=== PATIENT | female | born 1945 | race Caucasian/White ===

== ENCOUNTER 2019-09-13 19:37 | Emergency (ER) | payer MEDICARE, OTHER, SELFPAY ==
[2019-09-13 19:57] VITALS: BP 204/89; PULSE 67; RESP 18; TEMP 36.4; O2SAT 96; BMI 25.2
--- NOTE | 2019-09-13 21:55 | ED_ITS ---
Entered by Yasmeen Tejada, acting as scribe for Shirley Leija Sep 13, 2019 19:37 HPI - Weakness General: Chief complaint: Weakness Stated complaint: headache/numbness Time Seen by Provider: 09/13/19 21:54 Source: patient and family Mode of arrival: ambulatory History of Present Illness: HPI Narrative: 74 y/o female presents to the ED with sensation changes in her face and fingers. Pt states she had some tingling around the left side of her mouth and some tingling in a couple fingers. Pt has hx of high BP/migraines and states she has had several episodes this evening. These symptoms resolved on their own within about 10 minutes. MD Complaint: numbness and tingling Onset (ago): hour(s) (3) Duration: now resolved Location: other (left corner of mouth) Severity: mild Quality: tingling and numbness Associated symptoms: Denies chest pain, chills, dark stools, diaphoresis, dysuria, easy bruising, fever(s), nausea, syncope or vomiting Review of Systems General: Reports: other (negative unless marked) Const: Denies: fever, chills, body aches, fatigue, malaise or diaphoresis Eyes: Denies: change in vision or blurry vision ENMT: Denies: throat pain, painful swallowing, hoarseness, ear pain, ear discharge, Change in hearing or nasal discharge Card: Denies: chest pain, palpitations, irregular heart rhythm, syncope, pre- syncope, shortness of breath on exertion or shortness of breath when lying down Resp: Denies: shortness of breath, productive cough, non-productive cough, wheezing, coughing up blood or chest congestion GI: Denies: abdominal pain, nausea, vomiting, vomiting blood, coffee grounds in vomit, diarrhea, constipation, cramping, blood in stool or black tarry stool : Denies: flank pain, painful urination, urinary frequency, urinary urgency, decreased urine ouput, urinary incontinence or blood in urine Musc: Denies: neck pain, back pain, extremity pain, extremity swelling, joint pain, joint swelling, joint warmth or joint stiffness Skin/Breast: Denies: rash, skin tenderness or yellow skin Neuro: Reports: other (See HPI) Endo: Denies: excessive thirst, tired all the time, cold intolerance, excessive sweating, flushing or hot flashes Maciej/Lymph: Denies: easy bruising, easy bleeding, petechiae or enlarged lymph nodes All/Imm: Denies: hives, throat swelling, tongue swelling, facial swelling or acute wheezing PFSH ED PFSH: Social History Smoking and tobacco status: never smoked Physical Exam Const: COMMON NORMALS: no apparent distress, oriented x3, no limitations, healthy appearing and well nourished EXAM LIMITATIONS: no altered mental status GENERAL APPEARANCE: cooperative, well kempt and well developed ORIENTATION/CONSCIOUSNESS: Yes awake HENMT: COMMON NORMALS: normocephalic, head/scalp atraumatic, hearing grossly normal bilaterally, external ears normal, EAC's normal, external nose normal and moist oral mucous membranes HEAD & SCALP: normal to inspection, normocephalic and atraumatic FACE & SINUS: normal facial exam and face symmetric NOSE: external nose normal and nares normal EXTERNAL EAR: Yes external ears normal EXTERNAL AUDITORY CANAL: EAC's normal MOUTH: oral and palatal mucosa normal and tongue normal Eye: COMMON NORMALS: PERRL, EOMs intact bilaterally, conjunctivae normal and no scleral icterus GENERAL EYE: normal appearance of both eyes and normal light reflex CONJUNCTIVA: Yes conjunctivae normal SCLERA: sclerae normal CORNEA: Yes corneas normal PUPIL: Yes PERRL DIRECT OPHTHALMOSCOPY: Yes normal light reflex Neck/C-Spine: COMMON NORMALS: full ROM, no lymphadenopathy, supple, no meningeal signs and no JVD GENERAL: Yes normal visual inspection and Yes trachea midline CERVICAL SPINE: Yes cervical ROM normal Chest: COMMONS NORMALS: inspection of chest normal and palpation of chest normal Resp: COMMON NORMALS: normal respiratory effort, no retractions, no use of accessory muscles and clear to auscultation bilaterally EFFORT & INSPECTION: Yes able to speak in complete sentences AUSCULTATION: clear to auscultation bilaterally Cardio: COMMON NORMALS: no JVD, regular rate, regular rhythm, S1 normal heart sound, S2 normal heart sound, no gallops, no clicks, no murmurs and no rub JUGULAR VENOUS DISTENTION: no JVD RATE: regular rate RHYTHM: regular rhythm HEART SOUNDS: S1 normal and S2 normal GI: COMMON NORMALS: soft to palpation, non-tender, no hepatosplenomegaly and no masses INSPECTION: Yes normal to inspection PALPATION: Yes soft and Yes no hepatosplenomegaly : COMMON NORMALS: Yes no CVA tenderness BLADDER/KIDNEY EXAM: Yes no CVA tenderness Back/Pelvis: COMMON NORMALS: no CVA tenderness, thoracic and lumbar spine normal to inspection, no thoracic nor lumbar tenderness and thoraco-lumbar ROM normal Extremity: COMMON NORMALS: normal to inspection, full ROM, normal capillary refill, no joint enlargement, no clubbing, cyanosis or edema and no calf tenderness Neuro: COMMON NORMALS: oriented x3, CN's II-XII intact bilaterally, moves all extremities, no focal motor deficits and no sensory deficits noted MENINGEAL SIGNS: Yes no meningeal signs Psych: COMMON NORMALS: mental status grossly normal, thought process normal, cooperative, affect normal, speech normal and activity/motor behavior normal APPEARANCE: Yes well kempt SPEECH: Yes normal speech THOUGHT PROCESS: normal thought process Skin: COMMON NORMALS: no rashes or lesions noted, skin turgor normal, no jaundice, no petechiae and no mottling GENERAL SKIN EXAM: no rashes or lesions noted and turgor normal Course ED course: Pts Stroke Score - 0 Vital Signs: Vital signs: Vital Signs Temperature 97.5 F L 09/13/19 19:57 Pulse Rate 86 09/14/19 00:28 Respiratory Rate 16 09/14/19 00:28 Blood Pressure 187/68 09/14/19 00:28 Pulse Oximetry 96 09/14/19 00:28 MDM - Weakness MDM Narrative: Medical decision making narrative: Lisa is a very nice 74-year-old female who comes in complaining of headache along with tingling and numbness of the left side of her face and her left index finger and thumb. Her symptoms lasted a short time and resolved completely. Her differential was extensive including CVA, complicated migraine, paresthesias, radiculopathy among many others. Ultimately her symptoms had resolved and her headache resolved with treatment here. I informed her that this could be a complicated migraine but also could be a TIA and recommended further work-up including admission to the hospital for this. The patient declined to stay and wanted to go home. She understood that by going home this put her at risk of or severe permanent disability but despite this she wanted to be discharged. Her family was with her and seemed frustrated that she made this decision but ultimately did support her. They did agree to return with her immediately said her symptoms change or worsen. The patient was warned but she was also welcome to return. Lab Data: Attestation: I reviewed the patient's lab results. Labs: Lab Results 09/13/19 09/13/19 09/13/19 Range/Units 22:12 22:12 22:12 WBC 6.8 (4.0-10.0) 10^3/ uL RBC 4.26 (4.1-5.3) 10^6/u L Hgb 13.0 (11.5-15.3) g/dL Hct 39.1 (37.0-47.0) % MCV 91.8 (81-99) fL MCH 30.5 (28.0-34.0) pg MCHC 33.2 (30.0-36.0) g/dL RDW 11.3 L (12.1-15.1) % Plt Count 202 (130-400) 10^3/c mm MPV 10.4 (7.4-10.4) fL Neut % (Auto) 65.4 % Lymph % (Auto) 24.1 % Bracken % (Auto) 8.7 % Eos % (Auto) 0.9 % Baso % (Auto) 0.6 % Neut # (Auto) 4.5 (1.8-7.7) 10^3/u L Lymph # (Auto) 1.6 (0.8-4.8) 10^3/u L Bracken # (Auto) 0.6 (0.2-0.9) 10^3/u L Eos # (Auto) 0.1 (0.0-0.8) 10^3/u L Baso # (Auto) 0.0 (0.0-0.1) 10^3/u L Nucleated RBC % (a uto) 0 % Nucleated RBCs # 0.0 /100WBC PT 13.60 H (10.5-13.3) SECO NDS INR 1.01 (0.8-1.2) Sodium 140 (136-145) mmol/L Potassium 4.6 (3.5-5.1) mmol/L Chloride 101 (98-107) mmol/L Carbon Dioxide 27 (22-29) mmol/L Anion Gap 16.6 (5-19) BUN 16 (8-23) mg/dL Creatinine 0.9 (0.5-0.9) mg/dL Glucose 123 H (65-115) mg/dL Calcium 10.4 (8.5-10.5) mg/dL Magnesium 2.3 (1.7-2.3) mg/dL Total Bilirubin 0.2 (0.15-1.2) mg/dL AST 19 (0-32) U/L ALT 15 (0-33) U/L Alkaline Phosphata se 90 (35-105) IU/L Total Protein 7.9 (6.6-8.7) g/dL Albumin 4.4 (3.5-5.2) g/dL Globulin 3.5 (1.3-4.6) g/dL Imaging Data^: CT Head: Radiologist's impression: [address] [address] [address] Scan Report Signed Patient: Lisa Gillette #: [id number] : 6Acct#:[id number] Age/Sex: 74 / FADM Date: 09/13/19 Loc: ERRoom/Bed: Attending Dr: Ordering Provider/Ordering MD: Shirley Leija DO Date of Service: 09/13/19 Procedure(s): CT head wo con* [id number] Accession Number(s): [id number] Report Number: [id number] PROCEDURE INFORMATION: Exam: CT Head Without Contrast Exam date and time: 09/13/2019 10:33 PM Age: 74 years old Clinical indication: Pain; Headache not specified; Additional info: Sanchez/ams TECHNIQUE: Imaging protocol: Computed tomography of the head without contrast. Total DLP: 733.46 mGy-cm Radiation optimization: All CT scans at this facility use at least one of these dose optimization techniques: automated exposure control; mA and/or kV adjustment per patient size (includes targeted exams where dose is matched to clinical indication); or iterative reconstruction. COMPARISON: No relevant prior studies available. FINDINGS: Brain: No acute intracranial hemorrhage or mass effect. There is decreased attenuation in the periventricular white matter, likely from microvascular disease. No definite acute infarct by CT. MRI could be more sensitive/specific for detection, as clinically directed. Ventricles: Ventricle size is normal for age. Bones/joints: No definite acute skull fracture. Sinuses: Included paranasal sinuses are essentially clear. Mastoid air cells: No significant acute finding. Vasculature: Vascular calcifications in the internal carotid and vertebral basilar systems. CT/CT head wo con* [id number] IMPRESSION: 1. No acute intracranial hemorrhage or mass effect. 2. Changes of microvascular disease. 3. No definite acute infarct by CT, see above. 4. Other findings discussed above. Radiation Dose CTDIVOL = (mGy): DLP = 733.46 (mGy-cm) Dictated By:Daniel El MD Signed By:Daniel El MDSigned Date/Time:09/13/19 2306 EKG Data^: EKG 1: Attestation: I personally reviewed and interpreted this EKG as follows: EKG interpretation date: 09/13/19 EKG interpretation time: 22:17 Interpretation: Sinus bradycardia 59 beats a minute, LVH, no acute ST or T wave changes. 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 You are more than welcome to return at any time for recheck and for further evaluation and care suture change you change your mind. I have recommended and offered to admit you to the hospital for further testing to the rule out TIA but you have declined. Please be certain to follow-up with Dr. Oliva as soon as possible for recheck and further evaluation and care. Discharge Date/Time: 09/14/19 00:30 Coding Level of Care Code ED Charter Pilot for Chg Fwd Exam Comprehensive The documentation recorded by the scribeTerrell Ashley, accurately reflects the service I personally performed and the decisions made by , Shirley Leija Sep 13, 2019 19:37
--- NOTE | 2019-09-13 22:03 | CTR_ITS ---
PROCEDURE INFORMATION: Exam: CT Head Without Contrast Exam date and time: 09/13/2019 10:33 PM Age: 74 years old Clinical indication: Pain; Headache not specified; Additional info: Sanchez/ams TECHNIQUE: Imaging protocol: Computed tomography of the head without contrast. Total DLP: 733.46 mGy-cm Radiation optimization: All CT scans at this facility use at least one of these dose optimization techniques: automated exposure control; mA and/or kV adjustment per patient size (includes targeted exams where dose is matched to clinical indication); or iterative reconstruction. COMPARISON: No relevant prior studies available. FINDINGS: Brain: No acute intracranial hemorrhage or mass effect. There is decreased attenuation in the periventricular white matter, likely from microvascular disease. No definite acute infarct by CT. MRI could be more sensitive/specific for detection, as clinically directed. Ventricles: Ventricle size is normal for age. Bones/joints: No definite acute skull fracture. Sinuses: Included paranasal sinuses are essentially clear. Mastoid air cells: No significant acute finding. Vasculature: Vascular calcifications in the internal carotid and vertebral basilar systems. CT/CT head wo con* [id number] IMPRESSION: 1. No acute intracranial hemorrhage or mass effect. 2. Changes of microvascular disease. 3. No definite acute infarct by CT, see above. 4. Other findings discussed above. Radiation Dose CTDIVOL = (mGy): DLP = 733.46 (mGy-cm)
--- NOTE | 2019-09-13 22:03 | ECG_ITS ---
Measurements Intervals [place] Rate: 59 P: 61 DC: 177 QRS: -23 QRSD: 91 T: 39 QT: 375 QTc: 372 SINUS BRADYCARDIA BORDERLINE LEFT AXIS DEVIATION [QRS AXIS < -20] MINIMAL VOLTAGE CRITERIA FOR LVH, CONSIDER NORMAL VARIANT [MEETS CRITERIA IN ONE OF: R(aVL), S(V1), R(V5), R(V5/V6)+S(V1)] No previous ECG available for comparison Electronically Signed On 09-14-2019 9:13:39 VEHICLE OPERATOR by Marty Menon M.D. [email or web address]
--- NOTE | 2019-09-13 22:03 | XR_ITS ---
WS: [id number] XR chest 1V portable [id number] REASON FOR EXAM: cough FINDINGS: The lung mazariegos are well aerated. No pneumonia, pleural effusion, pulmonary edema, or pneum othorax. The hilum and apices are normal. No osseous abnormalities. XR/XR chest 1V portable [id number] IMPRESSION: No active cardiopulmonary changes.
[2019-09-13 22:17] LABS: Basophils % 0.6 %; Eosinophils # 0.1 10^3/uL (0.0-0.8); Eosinophils % 0.9 %; Hematocrit 39.1 % (37.0-47.0); Lymphocytes # 1.6 10^3/uL (0.8-4.8); Lymphocytes % 24.1 %; Mean Corpuscular HGB Conc 33.2 g/dL (30.0-36.0); Mean Corpuscular Hemoglobin 30.5 pg (28.0-34.0); Mean Corpuscular Volume 91.8 fL (81-99); Mean Platelet Volume 10.4 fL (7.4-10.4); Monocytes # 0.6 10^3/uL (0.2-0.9); Monocytes % 8.7 %; Neutrophils # 4.5 10^3/uL (1.8-7.7); Neutrophils % 65.4 %; Nucleated Red Blood Cells % 0 %; Platelet Count 202 10^3/cmm (130-400); Red Blood Count 4.26 10^6/uL (4.1-5.3); Red Cell Distribution Width 11.3 % (12.1-15.1); White Blood Count 6.8 10^3/uL (4.0-10.0)
[2019-09-13 22:30] LABS: INR 1.01 (0.8-1.2)
[2019-09-13] MEDS: sodium chloride 0.9% 1,000 ML 100 ML IV (22:31)
[2019-09-13] MEDS: metoclopramide 5 mg/mL SDV 2 mL IV (22:33)
[2019-09-13 22:35] LABS: Alanine Aminotransferase 15 U/L (0-33); Albumin Level 4.4 g/dL (3.5-5.2); Alkaline Phosphatase 90 IU/L (35-105); Anion Gap 16.6 (5-19); Aspartate Amino Transferase 19 U/L (0-32); Blood Urea Nitrogen 16 mg/dL (8-23); Calcium 10.4 mg/dL (8.5-10.5); Carbon Dioxide 27 mmol/L (22-29); Chloride 101 mmol/L (98-107); Globulin 3.5 g/dL (1.3-4.6); Glucose 123 mg/dL (65-115); Magnesium 2.3 mg/dL (1.7-2.3); Potassium 4.6 mmol/L (3.5-5.1); Sodium 140 mmol/L (136-145); Total Bilirubin 0.2 mg/dL (0.15-1.2); Total Protein 7.9 g/dL (6.6-8.7)
[2019-09-14] MEDS: aspirin 325 mg Tablet PO (00:12)
[2019-09-14 00:28] VITALS: BP 187/68; PULSE 86; RESP 16; O2SAT 96
== END 2019-09-14 00:30 | disposition home or self-care (01) ==
PROVIDERS: Emergency Provider Emergency Medicine; Family Provider Internal Medicine
DX: G45.9 Transient cerebral ischemic attack, unspecified (principal); G43.409 Hemiplegic migraine, not intractable, without status migrainosus
CPT/HCPCS: 36415; 70450; 71045; 80053; 83735; 85025; 85610; 93005; 96360; 96361; 96365; 96374; 96375; 99283; J0131; J2765; J7030

== ENCOUNTER 2019-09-19 11:13 | Outpatient (CLI) | payer MEDICARE, OTHER, SELFPAY ==
--- NOTE | 2019-09-19 | US_ITS ---
WS: [id number] DUPLEX CAROTID ULTRASOUND HISTORY: CVA, FACIAL WEAKNESS COMPARISON: None available. No significant elevation of systolic and diastolic velocities. Waveforms are normal. ICA to CCA ratio s are normal. No significant amount of plaque. There is some very minimal intimal thickening and calc ification at the bifurcations bilaterally. Antegrade vertebral arteries. US/ROR carotid duplex BI IMPRESSION: 1. Bilateral ICA stenosis less than 50%. 2. Mild atherosclerosis.
== END 2019-09-19 11:14 | disposition home or self-care (01) ==
LOC: RADOUTREAD 12:29
PROVIDERS: Family Provider Internal Medicine; PCP Internal Medicine; Visit Provider Internal Medicine
DX: Z01.89 Encounter for other specified special examinations (principal)

== ENCOUNTER 2019-10-06 10:00 | Outpatient (CLI) | payer MEDICARE, OTHER, SELFPAY ==
--- NOTE | 2019-10-06 10:09 | MR_ITS ---
WS: [id number] MRI BRAIN WITHOUT CONTRAST HISTORY: Prior CVA, numbness face and fingers. COMPARISON: CT head 09/13/2019 TECHNIQUE: Diffusion imaging, multiplanar T1, T2 and FLAIR imaging obtained. No evidence for an acute infarct. Diffusion-weighted images are negative. There is mild atrophy and c hronic microvascular ischemic disease. Microvascular ischemic changes in the supratentorial white mat ter but also in the [place] bilaterally. On the susceptibility imaging there are innumerable hemosiderin depositions noted bilaterally throughout the supratentorial white matter. There are innumerable low signal depositions. These are predominantly in a subcortical white matter distribution. No remote or acute infarcts are volume loss. Ventricles and extra-axial spaces are normal. No inferior displacement of cerebellar tonsils. The sella turcica and pituitary gland are unremarkabl e. Posterior fossa is also unremarkable. Dural venous sinuses and eek of Cage demonstrate no abnormality on this unenhanced studies. Paranasal sinuses: Small amount of fluid in the maxillary sinuses. Mastoid air cells: Normal. Calvarium and scalp: Intact. MR/MR head wo con* [id number] IMPRESSION: 1. No acute infarct. 2. Innumerable susceptibility artifacts throughout the supratentorial brain. T hese are predominantly in the subcortical white matter distribution. Differenti al includes amyloid angiopathy, microhemorrhages from prior trauma or hypertens ion, multiple cavernous angiomas. 3. Moderate chronic microvascular ischemic disease.
== END 2019-10-06 10:01 | disposition home or self-care (01) ==
LOC: RADSHAW 10:01
PROVIDERS: Family Provider Internal Medicine; PCP Internal Medicine; Visit Provider Internal Medicine
DX: I69.392 Facial weakness following cerebral infarction (principal)
CPT/HCPCS: 70551

== ENCOUNTER 2019-10-07 07:41 | Outpatient (CLI) | payer MEDICARE, OTHER, SELFPAY ==
--- NOTE | 2019-10-07 07:48 | USCV_ITS ---
Lisa Gillette Age: 74 Gender: F : 1945 Exam Date: 10/07/2019 07:58 Ordering Phys: Sahil Oliva DO Technologist: Gladis Pack Exam Location: [facility] [place] Indication: CVA BP: 166 / 77 HR: 72 Rhythm: Sinus Technical Quality: Good MEASUREMENTS (Male / Female) Normal Values 2D ECHO LV Diastolic Diameter PLAX 4.7 cm 4.2 - 5.9 / 3.9 - 5.3 cm LV Systolic Diameter PLAX 3.0 cm LV Chamber Size 4.6 cm IVS Diastolic Thickness 0.7 cm 0.6 - 1.0 / 0.6 - 0.9 cm IVS Systolic Thickness 1.1 cm LVPW Diastolic Thickness 0.6 cm 0.6 - 1.0 / 0.6 - 0.9 cm LVPW Systolic Thickness 0.8 cm RV Chamber Size 3.9 cm LVOT Diameter 2.0 cm LV Ejection Fraction 2D Teich 65.2 % LV Ejection Fraction MOD 2C 49.7 % LV Ejection Fraction 2C AL 48.9 % LA Diameter 2.9 cm LA Width 3.0 cm LA Height 4.7 cm RA Width 4.1 cm RA Height 4.3 cm M-MODE LV Diastolic Diameter MM 5.1 cm 4.2 - 5.9 / 3.9 - 5.3 cm LV Systolic Diameter MM 3.4 cm LV Ejection Fraction MM Teich 62.1 % IVS Diastolic Thickness MM 0.7 cm 0.6 - 1.0 / 0.6 - 0.9 cm IVS Systolic Thickness MM 0.9 cm LVPW Diastolic Thickness MM 0.7 cm 0.6 - 1.0 / 0.6 - 0.9 cm LVPW Systolic Thickness MM 1.0 cm RV Diastolic Diameter MM 1.4 cm Aortic Annulus Diameter 2.3 cm LA Ao Ratio MM 1.3 MV E Point Septal Separation 0.5 cm DOPPLER AV Peak Velocity 153.0 cm/s LVOT Peak Velocity 118.0 cm/s AV Area Cont Eq vti 2.8 cm squared AV Area Cont Eq pk 2.4 cm squared MV Area PHT 3.1 cm squared Mitral E to A Ratio 0.7 MV E' Velocity 10.0 cm/s Mitral E to MV E' Ratio 9.9 Mitral E to LV E' Lateral Ratio 8.8 Mitral E to LV E' Septal Ratio 11.4 TR Peak Velocity 282.2 cm/s TR Peak Gradient 31.9 mmHg TR Mean Velocity 221.2 cm/s TR Mean Gradient 20.6 mmHg TR Velocity Time Integral 81.1 cm TV Peak E Velocity 73.0 cm/s Right Atrial Pressure 3.0 mmHg Pulmonary Artery Systolic Pressu 34.9 mmHg PV Peak Velocity 81.0 cm/s FINDINGS Left Ventricle Normal left ventricular size, systolic function and wall thickness, with no regional wall motion abnormalities. Grade I/IV diastolic dysfunction (abnormal relaxation filling pattern), normal to mildly elevated filling pressures. Left ventricular ejection fraction is estimated at 55 %. Right Ventricle Normal right ventricular size and systolic function. Mild pulmonary hypertension, RVSP 34.9 mmHg. Right Atrium Moderately increased right atrial size. Left Atrium Moderately increased left atrial size. Mitral Valve Structurally normal mitral valve. No mitral valve regurgitation. Aortic Valve Structurally normal trileaflet aortic valve. Trace aortic valve regurgitation. No aortic valve stenosis. Tricuspid Valve Structurally normal tricuspid valve. Trace to mild tricuspid valve regurgitation. Pulmonic Valve Pulmonic valve not well visualized. Pericardium Normal pericardium without effusion. Aorta Normal ascending aorta dimension. CONCLUSIONS Normal left ventricular size, systolic function and wall thickness, with no regional wall motion abnormalities. Grade I/IV diastolic dysfunction (abnormal relaxation filling pattern), normal to mildly elevated filling pressures. Left ventricular ejection fraction is estimated at 55 %. Normal right ventricular size and systolic function. Mild pulmonary hypertension, RVSP 34.9 mmHg. Moderately increased right atrial size. Moderately increased left atrial size. Structurally normal trileaflet aortic valve. Trace aortic valve regurgitation. No aortic valve stenosis. There are no prior echocardiogram studies to compare. Dr. Marty Menon MD (Electronically Signed) Final Date: 07 October 2019 18:25 S
== END 2019-10-07 07:42 | disposition home or self-care (01) ==
LOC: US 07:43
PROVIDERS: Family Provider Internal Medicine; PCP Internal Medicine; Visit Provider Internal Medicine
DX: I69.392 Facial weakness following cerebral infarction (principal); I08.2 Rheumatic disorders of both aortic and tricuspid valves
CPT/HCPCS: 93306

== ENCOUNTER → 2021-07-25 14:45 | Outpatient (BNVA) | payer MEDICARE, OTHER, SELFPAY | PROVIDERS: Family Provider Internal Medicine; PCP Internal Medicine; Visit Provider Obstetrics & Gynecology | DX: N89.8 Other specified noninflammatory disorders of vagina (principal) | CPT/HCPCS: 87070; 87205; 87481; 87512; 87798; 87799 ==

== ENCOUNTER → 2021-08-04 08:27 | Outpatient (BNVA) | payer MEDICARE, OTHER, SELFPAY | PROVIDERS: Family Provider Internal Medicine; PCP Internal Medicine; Visit Provider Obstetrics & Gynecology | DX: R10.2 Pelvic and perineal pain (principal) | CPT/HCPCS: 76830 ==

== ENCOUNTER 2023-07-16 20:51 | Emergency (ER) | payer MEDICARE, OTHER, SELFPAY ==
[2023-07-16 21:00] VITALS: BP 164/73; PULSE 68; RESP 17; TEMP 36.6; O2SAT 99; BMI 23.8
--- NOTE | 2023-07-16 21:02 | W.ED.NEUROSD ---
HPI - Neuro Symptoms/Deficit General: Chief Complaint: Weakness Stated Complaint: numbness right hand,slurred speech, disoriented Time Seen by Provider: 07/16/23 20:56 History of Present Illness: 78-year-old female presents to the emergency department stating that she had some right cheek tingling and concern for some right finger numbness and what she perceived as difficulty squeezing a glass when she picked it up at approximately 8 PM this evening. She states that it is completely resolved after calling her son. She states this occurred immediately after getting out of a hot shower. She is accompanied by her son in the triage room and states that she has no symptoms now. She states that in the past that she had a mini stroke many years ago and states that she currently takes aspirin 81 mg daily and when she felt the tingling to her right facial cheek took an additional 81 mg aspirin. She denies headache, nausea vomiting dizziness chest pain or shortness of breath. She states she has no concerns at this time but was encouraged by her son to come to the ER to be evaluated. Review of Systems General: Reports: 10 or more systems reviewed and unremarkable except in HPI and below Neuro: Reports: sensory changes (Right facial cheek, right third and fourth digit of her hand.) [facility] ED PFSH: Medical History Acid reflux High cholesterol History of TIA (transient ischemic attack) Hypothyroidism Microscopic colitis Surgical History History of colonoscopy No pertinent past surgical history Family History Sister Cancer Hodgkin's disease Diabetes Father Cancer Prostate Brother Cancer prostate Hypertension Denies family history of Clotting disorder Hyperlipidemia Chronic kidney disease (CKD) Bleeding disorder Stroke Social History Smoking and tobacco/nicotine status: never used tobacco/nicotine Physical Exam Narrative: EXAM NARRATIVE: Constitutional: the patient appears well nourished and with normal development. Vital signs reviewed as documented. HENMT: Normocephalic, atraumatic. Extermal ears with normal appearance without drainage. Nose without drainage, normal appearance. Mucus membranes moist. Neck is supple, No jugular venous distension, trachea is midline, no appreciable carotid bruits. No lymphadenopathy. No meningeal signs. Flexion, extension and lateral rotation is without pain. Eyes: Pupils are equal, round, reactive to light and accommodation. No scleral icterus. Extra-ocular movement are intact. Thorax is symmetrical and with equal rise and fall with respirations. Resp: Lungs are clear to auscultation. No wheezes, rales, crackles or ronchi at present. Cardio: Regular rate and rhythm. Positive S1, S2. No appreciable murmurs, rubs or gallops. GI: Abdominal exam reveals normal bowel sounds to all quadrants. No organomegaly. No obvious palpable masses noted. No hepatomegally appreciated. Soft, nontender to palpation. Extremity: Extremities are non-edematous and both femoral and pedal pulses are 2+ and equal bilaterally. Moves all extremities well, sensation in all extremities. Neuro: Alert and oriented x4, person, place, time and situation. Cranial nerves II through XII are grossly intact, there is no focal neurological deficits that I can appreciate at present. Motor strength in the upper and lower extremities are equal and bilateral 5/5. Psych: Cooperative, calm, normal thought process, appropriate judgment. Skin: No lesions, rashes. No gross abnormalities noted. Back: Symmetrical, no obvious deformity, No CVA tenderness Course ED course: NIH Stroke Scale/Score (NIHSS) on 07/16/2023 RESULT SUMMARY: 0 points NIH Stroke Scale INPUTS: 1A: Level of consciousness ?> 0 = Alert; keenly responsive 1B: Ask month and age ?> 0 = Both questions right 1C: 'Blink eyes' & 'squeeze hands' ?> 0 = Performs both tasks 2: Horizontal extraocular movements ?> 0 = Normal 3: Visual mazariegos ?> 0 = No visual loss 4: Facial palsy ?> 0 = Normal symmetry 5A: Left arm motor drift ?> 0 = No drift for 10 seconds 5B: Right arm motor drift ?> 0 = No drift for 10 seconds 6A: Left leg motor drift ?> 0 = No drift for 5 seconds 6B: Right leg motor drift ?> 0 = No drift for 5 seconds 7: Limb Ataxia ?> 0 = No ataxia 8: Sensation ?> 0 = Normal; no sensory loss 9: Language/aphasia ?> 0 = Normal; no aphasia 10: Dysarthria ?> 0 = Normal 11: Extinction/inattention ?> 0 = No abnormality Reevaluation(s): Reevaluation #1: Alert and oriented x 4 no recurrence of symptoms vital signs remained stable no acute distress. I discussed the plan of care as well as the importance of recommended follow-up with the patient she verbalized understanding all information provided and was discharged home with her family member in stable condition and in no acute distress. Time: 00:05 Vital Signs: Vital signs: Vital Signs Temperature 98 F 07/16/23 21:00 Pulse Rate 63 07/16/23 23:47 Respiratory Rate 17 07/16/23 21:00 Blood Pressure 148/59 07/16/23 23:47 Pulse Oximetry 96 07/16/23 23:47 Oxygen Delivery Me thod Room Air 07/16/23 23:47 MDM - Neuro Symptoms/Deficit Medical Decision Making Physical exam completed and documented, I will obtain a CBC, CMP, CT scan of the head patient's symptoms have resolved completely I suspect this may have been a TIA as she has had a single TIA in the past. I will evaluate for electrolyte imbalances and monitor her in the emergency department and ultimately have her follow-up with her primary care provider to discuss additional evaluation treatment and care. Differential Diagnosis Likely transient cerebral ischemia Lab Data 07/16/23 21:45 07/16/23 21:[address] 07/16/23 21:03 IMPRESSION: No acute intracranial abnormality. Laboratory Results WBC 4.78 10^3/uL (3.29-11.43) 07/16/23 21:45 RBC 3.84 10^6/uL (3.85-5.65) L 07/16/23 21:45 Hgb 12.20 g/dL (11.27-16.99) 07/16/23 21:45 Hct 37.6 % (36-47) 07/16/23 21:45 MCV 97.9 fl (85-98) 07/16/23 21:45 MCH 31.8 pg (27-33) 07/16/23 21:45 MCHC 32.4 g/dL (30-55) 07/16/23 21:45 RDW 11.3 % (12.1-15.1) L 07/16/23 21:45 Plt Count 172 10^3/cmm (157-399) 07/16/23 21:45 MPV 10.3 fL (7.4-10.4) 07/16/23 21:45 Neut % (Auto) 48.6 % 07/16/23 21:45 Lymph % (Auto) 37.0 % 07/16/23 21:45 [place] % (Auto) 11.1 % 07/16/23 21:45 Eos % (Auto) 2.3 % 07/16/23 21:45 Baso % (Auto) 0.8 % 07/16/23 21:45 Neut # (Auto) 2.32 10^3/uL (1.8-7.7) 07/16/23 21:45 Lymph # (Auto) 1.8 10^3/uL (0.8-4.8) 07/16/23 21:45 [place] # (Auto) 0.5 10^3/uL (0.2-0.9) 07/16/23 21:45 Eos # (Auto) 0.1 10^3/uL (0.0-0.8) 07/16/23 21:45 Baso # (Auto) 0.0 10^3/uL (0.0-0.1) 07/16/23 21:45 Nucleated RBC % (auto) 0 % 07/16/23 21:45 Nucleated RBCs # 0.0 /100WBC 07/16/23 21:45 Sodium 138 mmol/L (136-145) 07/16/23 21:45 Potassium 4.0 mmol/L (3.5-5.1) 07/16/23 21:45 Chloride 103 mmol/L (98-107) 07/16/23 21:45 Carbon Dioxide 28 mmol/L (22-29) 07/16/23 21:45 Anion Gap 11.0 (5-19) 07/16/23 21:45 BUN 15 mg/dL (8-23) 07/16/23 21:45 Creatinine 0.9 mg/dL (0.5-0.9) 07/16/23 21:45 GFR Calculation Not Reportable 07/16/23 21:45 Glucose 123 mg/dL (65-115) H 07/16/23 21:45 Calculated Osmolality 288 mOsm/kg (285-295) 07/16/23 21:45 Calcium 9.0 mg/dL (8.5-10.5) 07/16/23 21:45 Total Bilirubin 0.3 mg/dL (0.15-1.2) 07/16/23 21:45 AST 22 U/L (0-32) 07/16/23 21:45 ALT 19 U/L (0-33) 07/16/23 21:45 Alkaline Phosphatase 106 U/L (35-105) H 07/16/23 21:45 NT-Pro-B Natriuret Pep 120 pg/mL (0-450) 07/16/23 21:45 Total Protein 6.7 g/dL (6.6-8.7) 07/16/23 21:45 Albumin 3.8 g/dL (3.5-5.2) 07/16/23 21:45 Globulin 2.9 g/dL (1.3-4.6) 07/16/23 21:45 Urine Color Yellow (Yellow) 07/16/23 23:12 Urine Appearance Clear (CLEAR) 07/16/23 23:12 Urine pH 8 (5-7) H 07/16/23 23:12 Ur Specific [place] 1.010 (1.005-1.030) 07/16/23 23:12 Urine Protein Neg (Negative) 07/16/23 23:12 Urine Glucose (UA) Norm (Normal) 07/16/23 23:12 Urine Ketones Negative (Negative) 07/16/23 23:12 Urine Blood Neg (Negative) 07/16/23 23:12 Urine Nitrate Negative (Negative) 07/16/23 23:12 Urine Bilirubin Neg (Negative) 07/16/23 23:12 Prot Sulfosalicylic Acd Negative (Negative) 07/16/23 23:12 Urine Urobilinogen Neg mg/dL (Negative) 07/16/23 23:12 Ur Leukocyte Esterase 1+ (Negative) H 07/16/23 23:12 Urine RBC None /hpf (0-2) 07/16/23 23:12 Urine WBC None /hpf (0-5) 07/16/23 23:12 Ur Squamous Epith Cells None /hpf (0-5) 07/16/23 23:12 Amorphous Sediment Not Reportable 07/16/23 23:12 Urine Bacteria Trace /hpf (NONE) 07/16/23 23:12 All radiology interpretation(s) finalized by discharge EKG Data EKG 1: Interpretation: Twelve-lead EKG obtained at 2234 and reviewed at 223 demonstrates normal sinus rhythm with a ventricular rate of 62 bpm, NC interval 191, QRS duration 95 QT 385 QTc [address] elevation or depression to demonstrate acute ischemia or infarction at present. Discharge Plan Discharge Patient Disposition: Home Clinical Impression: Paresthesia, TIA (transient ischemic attack) Condition: Stable Prescriptions: No Action Dexilant 60 mg capsule,biphase delayed releas 60 mg PO DAILY levothyroxine 50 mcg capsule 50 mcg PO DAILY aspirin 81 mg tablet,chewable 81 mg PO DAILY atorvastatin 40 mg tablet 40 mg PO DAILY vitamin B complex [B Complex-Vitamin B12] Tablet 1 tab PO DAILY cholecalciferol (vitamin D3) 50 mcg (2,000 unit) capsule 50 mcg PO BID Discharge Orders: Discharge ED (Routine); Ordered 07/17/23 Ordered By: Trevon Williamson Referrals: Sahil Oliva DO [Primary Care Provider] - Discharge Diet: Advance as tolerated Discharge Activity: Resume usual activity Patient Instructions: Opioid Safety, Pain Management Activity Restrictions/Additional Instructions: Activity Restrictions/Additional Instructions: Thank you for choosing [facility] for your healthcare needs today. Please realize that you were seen in the Emergency Department and that we are providing you with an emergency medical screening exam and this may not be a complete and all inclusive of all the testing and or medical work-up that you may need to determine your ailment or severity of your illness. It is very important that you follow-up as instructed with your Primary care provider or Specialist for additional evaluation and to discuss your medical treatment plan. You may return to the Emergency Department should you have concerns or if your condition changes or worsens in any way. Coding Level of Care Code ED Step Finisher for Akanksha Soto
--- NOTE | 2023-07-16 21:03 | CTR_ITS ---
PROCEDURE INFORMATION: Exam: CT Head Without Contrast Exam date and time: 07/16/2023 9:10 PM Age: 78 years old Clinical indication: Other: Face tingling TECHNIQUE: Imaging protocol: Computed tomography of the head without contrast. Radiation optimization: All CT scans at this facility use at least one of these dose optimization techniques: automated exposure control; mA and/or kV adjustment per patient size (includes targeted exams where dose is matched to clinical indication); or iterative reconstruction. REPORTING DATA: Count of CT and Cardiac NM exams in prior 12 months: This patient has received 0 known CTs and 0 known cardiac nuclear medicine studies in the 12 months prior to the current study. COMPARISON: MR head wo con* [id number] 10/06/2019 10:45 AM RADIATION DOSE METRICS: Total DLP (mGy-cm): 987.68 FINDINGS: Brain: No hemorrhage. No edema. Mild diffuse cerebral atrophy and sequela of chronic small vessel ischemic disease. No mass effect. Cerebral ventricles: No ventriculomegaly. Paranasal sinuses: Visualized sinuses are unremarkable. No fluid levels. Mastoid air cells: Visualized mastoid air cells are well aerated. Bones/joints: Unremarkable. No acute fracture. Soft tissues: Unremarkable. CT/CT head wo con* [id number] IMPRESSION: No acute intracranial abnormality.
[2023-07-16 22:02] LABS: Basophils % 0.8 %; Eosinophils # 0.1 10^3/uL (0.0-0.8); Eosinophils % 2.3 %; Hematocrit 37.6 % (36-47); Lymphocytes # 1.8 10^3/uL (0.8-4.8); Mean Corpuscular HGB Conc 32.4 g/dL (30-55); Mean Corpuscular Hemoglobin 31.8 pg (27-33); Mean Corpuscular Volume 97.9 fl (85-98); Mean Platelet Volume 10.3 fL (7.4-10.4); Monocytes # 0.5 10^3/uL (0.2-0.9); Monocytes % 11.1 %; Neutrophils # 2.32 10^3/uL (1.8-7.7); Neutrophils % 48.6 %; Nucleated Red Blood Cells % 0 %; Platelet Count 172 10^3/cmm (157-399); Red Blood Count 3.84 10^6/uL (3.85-5.65); Red Cell Distribution Width 11.3 % (12.1-15.1); White Blood Count 4.78 10^3/uL (3.29-11.43)
[2023-07-16 22:30] LABS: Alanine Aminotransferase 19 U/L (0-33); Albumin Level 3.8 g/dL (3.5-5.2); Alkaline Phosphatase 106 U/L (35-105); Aspartate Amino Transferase 22 U/L (0-32); Blood Urea Nitrogen 15 mg/dL (8-23); Carbon Dioxide 28 mmol/L (22-29); Chloride 103 mmol/L (98-107); Creatinine Clr Calc Pharmacy 44.3331; Globulin 2.9 g/dL (1.3-4.6); Glucose 123 mg/dL (65-115); NT Pro B Type Natriuretic Pept 120 pg/mL (0-450); Osmolality Calculated 288 mOsm/kg (285-295); Sodium 138 mmol/L (136-145); Total Bilirubin 0.3 mg/dL (0.15-1.2); Total Protein 6.7 g/dL (6.6-8.7)
--- NOTE | 2023-07-16 22:34 | ECG_ITS ---
[facility] Test Date: 2023-07-16 Pat Name: Lisa Gillette Department: Room: Gender: Female Cryptanalyst: : 1945 Requested By: Trevon Williamson Order Number: [id number] Maggi MD: Marty Menon M.D. Measurements Intervals [place] Rate: 62 P: 78 [place]: 191 QRS: 23 QRSD: 95 T: 70 QT: 385 QTc: 391 Interpretive Statements SINUS RHYTHM Compared to ECG 09/13/2019 22:17:21 Sinus bradycardia no longer present Electronically Signed On 07-17-2023 14:39:36 BLOCK FEEDER by Marty Menon M.D. [id number]
[2023-07-16 23:23] LABS: Add Urine Culture? No; Add Urine Microscopic? YES; Bacteria Urine TRACE /hpf; Bilirubin Urine Neg (Negative); Blood Urine Neg (Negative); Glucose Urine UA Norm (Normal); Ketones Urine Negative (Negative); Leukocyte Esterase Urine 1+ (Negative); Nitrate Urine Negative (Negative); Protein Urine Neg (Negative); Sulfosalicylic Acid Urine Negative (Negative); Urine Appearance Clear (CLEAR); Urine Color Yellow (Yellow); Urobilinogen Urine Neg (Negative); pH Urine 8 (5-7)
[2023-07-16 23:47] VITALS: BP 148/59; PULSE 63; O2SAT 96
[2023-07-17 00:24] VITALS: BP 132/69; PULSE 87; RESP 18; O2SAT 97
== END 2023-07-17 00:25 | disposition home or self-care (01) ==
PROVIDERS: Emergency Provider Internal Medicine; PCP Internal Medicine
DX: G45.9 Transient cerebral ischemic attack, unspecified (principal); R20.2 Paresthesia of skin; Z79.82 Long term (current) use of aspirin; Z86.73 Personal history of transient ischemic attack (TIA), and cerebral infarction without residual deficits
CPT/HCPCS: 36415; 70450; 80053; 81001; 83880; 85025; 93005; 99284

== ENCOUNTER 2023-08-01 08:13 | Outpatient (CLI) | payer MEDICARE, OTHER, SELFPAY ==
--- NOTE | 2023-08-01 08:21 | MR_ITS ---
WS: [id number] MRI HEAD WITHOUT CONTRAST TECHNIQUE: Sagittal T1, T2 axial, T2 axial FLAIR, axial and coronal T1 images, axial susceptibility w eighted imaging, axial diffusion weighted images, and coronal T2 images were obtained. CLINICAL INFORMATION: TIA COMPARISON: None. FINDINGS: Innumerable supratentorial foci of hemosiderin and diffuse hemosiderin in the cerebellar fo rylie similar compared to 2020. No evidence of restricted diffusion to suggest acute ischemia. Ventricular system and basal cisterns are patent. Moderate small vessel changes. Mild parenchymal volume loss. Normal posterior fossa. Norm al vascular flow voids at the skull base. Extra-axial fluid collections. No evidence of mass or mass effect. Paranasal sinuses are well aerated. Mastoid air cells are well aerated. Normal optic chiasm and pituitary infundibulum. Mild symmetric atrophy temporal lobes and hippocampal formations. IMPRESSION: 1. No evidence of restricted diffusion to suggest acute ischemia. 2. Moderate small vessel changes with mild parenchymal volume loss slightly progressed compared to 2 020. 3. Innumerable supratentorial foci of hemosiderin and diffuse hemosiderin in the cerebellar folia si milar compared to 2020. Differential considerations are unchanged including amyloid angiopathy, super ficial siderosis, and previous trauma or hypertension, and multiple cavernomas. Consider neurology co nsultation.
== END 2023-08-01 08:14 | disposition home or self-care (01) ==
LOC: RAD 08:13
PROVIDERS: PCP Internal Medicine; Visit Provider Family Medicine
DX: G45.9 Transient cerebral ischemic attack, unspecified (principal); I67.89 Other cerebrovascular disease; R90.89 Other abnormal findings on diagnostic imaging of central nervous system
CPT/HCPCS: 70551

== ENCOUNTER 2023-08-09 11:41 | Outpatient (CLI) | payer MEDICARE, OTHER, SELFPAY ==
--- NOTE | 2023-08-09 11:50 | USCV_ITS ---
Lisa Gillette Age: 78 Gender: F : 1945 Exam Date: 08/09/2023 12:03 Ordering Phys: Brent Mckeon MD Technologist: Exam Location: [facility] [place] Indication: tia BP: 120 / 70 HR: 71 Rhythm: Sinus Technical Quality: Adequate MEASUREMENTS (Male / Female) Normal Values 2D ECHO LV Diastolic Diameter PLAX 4.5 cm 4.2 - 5.9 / 3.9 - 5.3 cm LV Systolic Diameter PLAX 2.6 cm IVS Diastolic Thickness 0.8 cm 0.6 - 1.0 / 0.6 - 0.9 cm IVS Systolic Thickness 1.2 cm LVPW Diastolic Thickness 0.8 cm 0.6 - 1.0 / 0.6 - 0.9 cm LVPW Systolic Thickness 0.9 cm LVOT Diameter 1.8 cm LV Ejection Fraction 2D Teich 73.6 % LV Ejection Fraction MOD 2C 71.1 % LV Ejection Fraction 2C AL 71.5 % LA Diameter 2.8 cm IVC Diameter 1.6 cm M-MODE Aortic Annulus Diameter 3.0 cm LA Ao Ratio MM 0.9 MV E Point Septal Separation 0.5 cm DOPPLER AV Peak Velocity 158.0 cm/s LVOT Peak Velocity 118.0 cm/s AV Area Cont Eq vti 2.0 cm squared AV Area Cont Eq pk 1.8 cm squared MV Area PHT 3.7 cm squared Mitral E to A Ratio 1.0 MV E' Velocity 53.5 cm/s Mitral E to MV E' Ratio 6.8 Mitral E to LV E' Lateral Ratio 5.5 Mitral E to LV E' Septal Ratio 8.6 TR Peak Velocity 266.7 cm/s TR Peak Gradient 28.4 mmHg TV Peak E Velocity 104.0 cm/s Right Atrial Pressure 3.0 mmHg Pulmonary Artery Systolic Pressu 31.4 mmHg RV Acceleration Time 0.1 s FINDINGS Left Ventricle Normal left ventricular size and systolic function, EF 71 %. No regional wall motion abnormalities. Grade I/IV diastolic dysfunction (abnormal relaxation filling pattern), normal to mildly elevated filling pressures. Right Ventricle The right ventricle is normal in size and function. Right Atrium The right atrium is normal in size. Left Atrium Mildly increased left atrial size. Mitral Valve No gross abnormalities noted Aortic Valve . no gross abnormalities noted Tricuspid Valve Mild tricuspid valve regurgitation. Pulmonic Valve No gross abnormalities noted Pericardium Normal pericardium without effusion. Aorta Normal ascending aorta dimension. IVC The inferior vena cava appears normal. CONCLUSIONS Normal left ventricular size and systolic function, EF 71 %. No regional wall motion abnormalities. Grade I/IV diastolic dysfunction (abnormal relaxation filling pattern), normal to mildly elevated filling pressures. Mild tricuspid valve regurgitation. Mild left atrial enlargement Estimated pulmonary artery peak systolic pressure 31 mmHg There is no pericardial effusion. There are no intracardiac masses. Compared to the previous study from 10/07/2019, there may not be significant change Dr Jaclyn Shea MD FACC (Electronically Signed) Final Date: 13 August 2023 20:06 S
== END 2023-08-09 11:42 | disposition home or self-care (01) ==
LOC: RAD 11:43
PROVIDERS: PCP Internal Medicine; Visit Provider Family Medicine
DX: G45.9 Transient cerebral ischemic attack, unspecified (principal); I07.1 Rheumatic tricuspid insufficiency
CPT/HCPCS: 93306

== ENCOUNTER → 2023-12-10 09:05 | Outpatient (BNVA) | payer MEDICARE, OTHER, SELFPAY | PROVIDERS: PCP Internal Medicine; Visit Provider Nurse Practitioner Family | DX: L23.89 Allergic contact dermatitis due to other agents (principal); L82.0 Inflamed seborrheic keratosis; L72.0 Epidermal cyst; L82.1 Other seborrheic keratosis; L57.8 Other skin changes due to chronic exposure to nonionizing radiation | CPT/HCPCS: 17110; 99203 ==

== ENCOUNTER → 2024-01-07 09:21 | Outpatient (BNVA) | payer MEDICARE, OTHER, SELFPAY | PROVIDERS: PCP Internal Medicine; Visit Provider Nurse Practitioner Family | DX: L23.89 Allergic contact dermatitis due to other agents (principal); S00.80XA Unspecified superficial injury of other part of head, initial encounter; X58.XXXA Exposure to other specified factors, initial encounter | CPT/HCPCS: 99213 ==

== ENCOUNTER → 2024-07-31 08:29 | Outpatient (BNVA) | payer MEDICARE, OTHER, SELFPAY | PROVIDERS: PCP Internal Medicine; Visit Provider Nurse Practitioner Family | DX: L23.89 Allergic contact dermatitis due to other agents (principal); L29.89 Other pruritus | CPT/HCPCS: 99213 ==

== ENCOUNTER 2024-12-18 18:11 | Emergency (ER) | payer MEDICARE, OTHER, SELFPAY ==
[2024-12-18 18:15] VITALS: BP 140/64; PULSE 67; RESP 17; TEMP 36.7; O2SAT 93
--- NOTE | 2024-12-18 18:20 | CTR_ITS ---
PROCEDURE INFORMATION: Exam: CT Head Without Contrast Exam date and time: 12/18/2024 6:26 PM Age: 79 years old Clinical indication: Stroke-like symptoms; RT upper extremity weakness; Additional info: Symptoms of acute stroke TECHNIQUE: Imaging protocol: Computed tomography of the head without contrast. Radiation optimization: All CT scans at this facility use at least one of these dose optimization techniques: automated exposure control; mA and/or kV adjustment per patient size (includes targeted exams where dose is matched to clinical indication); or iterative reconstruction. Other technique: STROKE PROTOCOL was implemented. COMPARISON: MR head wo con* [id number] 08/01/2023 9:04 AM RADIATION DOSE METRICS: Total DLP (mGy-cm): 987.68 FINDINGS: Brain: No hemorrhage. No edema. Mild diffuse cerebral atrophy and sequela of chronic small vessel ischemic disease. No mass effect. Cerebral ventricles: No ventriculomegaly. Paranasal sinuses: Visualized sinuses are unremarkable. No fluid levels. Mastoid air cells: Visualized mastoid air cells are well aerated. Bones: Unremarkable. No acute fracture. Soft tissues: Unremarkable. CT/CT head thrombolytic [id number] IMPRESSION: No acute intracranial abnormality. ASSESSMENT: ASPECTS (Emily Stroke Program Early CT Score) is 10.
[2024-12-18 18:22] LABS: Glucose Point of Care 105 mg/dL (70-110)
[2024-12-18 18:25] VITALS: BP 149/73; O2SAT 97
--- NOTE | 2024-12-18 18:31 | W.ED.NEUROSD ---
HPI - Neuro Symptoms/Deficit General: Chief Complaint: Neuro Symptoms/Deficit Stated Complaint: stroke like symptoms(numbness,slurred, speech) Time Seen by Provider: 12/18/24 18:29 History of Present Illness: 79-year-old female with a history of recurrent TIA, hypothyroidism hyperlipidemia who presents to the emergency room with neurologic symptoms. She said she developed some numbness in her right hand and then some numbness in her face. Also on her tongue. Family states that her speech was a bit slurred at the time. Symptoms have almost completely resolved now. Symptoms started about 30 minutes prior to arrival Related Data Home Medications ?Medication ?Instructions ?Recorded ?Confirmed aspirin 81 mg chewable tablet 81 mg PO DAILY 07/25/21 08/08/21 atorvastatin 40 mg tablet 40 mg PO DAILY 07/25/21 08/08/21 cholecalciferol (vitamin D3) 50 50 mcg PO BID 07/25/21 08/08/21 mcg (2,000 unit) capsule dexlansoprazole 60 mg 60 mg PO DAILY 07/25/21 08/08/21 capsule,biphase delayed release (Dexilant) levothyroxine 50 mcg capsule 50 mcg PO DAILY 07/25/21 08/08/21 vitamin B complex (B 1 tab PO DAILY 07/25/21 08/08/21 Complex-Vitamin B12 tablet) Previous Rx's ?Medication ?Instructions ?Recorded clopidogrel 75 mg tablet (Plavix) 75 mg PO DAILY #21 tabs 12/18/24 Allergies Allergy/AdvReac Type Severity Reaction Status Date / Time No Known Allergies Allergy Verified 08/08/21 14:51 Review of Systems Narrative: Constitutional symptoms: Negative except as documented in HPI. Skin symptoms: Negative except as documented in HPI. Eye symptoms: Negative except as documented in HPI. ENMT symptoms: Negative except as documented in HPI. Respiratory symptoms: Negative except as documented in HPI. Cardiovascular symptoms: Negative except as documented in HPI. Gastrointestinal symptoms: Negative except as documented in HPI. Genitourinary symptoms: Negative except as documented in HPI. Musculoskeletal symptoms: Negative except as documented in HPI. Neurologic symptoms: Negative except as documented in HPI. Psychiatric symptoms: Negative except as documented in HPI. Endocrine symptoms: Negative except as documented in HPI. [facility] ED PFSH: Medical History Acid reflux High cholesterol History of TIA (transient ischemic attack) Hypothyroidism Microscopic colitis Surgical History History of colonoscopy No pertinent past surgical history Family History Sister Cancer Hodgkin's disease Diabetes Father Cancer Prostate Brother Cancer prostate Hypertension Denies family history of Clotting disorder Hyperlipidemia Chronic kidney disease (CKD) Bleeding disorder Stroke Social History Smoking and tobacco/nicotine status: never used tobacco/nicotine Physical Exam Narrative: EXAM NARRATIVE: General: Alert, no acute distress. Skin: Warm, dry. Head: Normocephalic, atraumatic. Neck: Supple, trachea midline. Eye: Extraocular movements are intact. Ears, nose, mouth and throat: mucosa moist. Cardiovascular: Regular, Normal peripheral perfusion. Respiratory: Lungs are clear to auscultation, respirations are non-labored, breath sounds are equal, Symmetrical chest wall expansion. Gastrointestinal: Soft, Nontender, Non distended Musculoskeletal: Normal ROM, no deformity. Neurological: Alert and oriented, No focal neurological deficit observed. Psychiatric: Cooperative, appropriate mood & affect. Course Vital Signs: Vital signs: Vital Signs Temperature 98.1 F 12/18/24 18:15 Pulse Rate 63 12/18/24 19:52 Respiratory Rate 17 12/18/24 18:15 Blood Pressure 157/90 12/18/24 19:52 Pulse Oximetry 94 12/18/24 19:52 Oxygen Delivery Me thod Room Air 12/18/24 18:25 MDM - Neuro Symptoms/Deficit Medical Decision Making Medical decision making: Differential diagnosis for patient with focal neurologic deficit(s) includes but not limited to and based on the above HPI, review of systems and physical exam: ischemic stroke, hemorrhagic stroke and embolic stroke secondary to atrial fibrillation), TIA, Cadet's palsey, metabolic encephalopathy with previous stroke. Orders placed to evaluate differential diagnosis based on the above differential, HPI and physical exam NIH Stroke Scale/Score (NIHSS) from [facility] [employer] [facility] on 12/18/2024 * All calculations should be rechecked by clinician prior to use RESULT SUMMARY: 0 points NIH Stroke Scale INPUTS: 1A: Level of consciousness ?> 0 = Alert; keenly responsive 1B: Ask month and age ?> 0 = Both questions right 1C: 'Blink eyes' & 'squeeze hands' ?> 0 = Performs both tasks 2: Horizontal extraocular movements ?> 0 = Normal 3: Visual mazariegos ?> 0 = No visual loss 4: Facial palsy ?> 0 = Normal symmetry 5A: Left arm motor drift ?> 0 = No drift for 10 seconds 5B: Right arm motor drift ?> 0 = No drift for 10 seconds 6A: Left leg motor drift ?> 0 = No drift for 5 seconds 6B: Right leg motor drift ?> 0 = No drift for 5 seconds 7: Limb Ataxia ?> 0 = No ataxia 8: Sensation ?> 0 = Normal; no sensory loss 9: Language/aphasia ?> 0 = Normal; no aphasia 10: Dysarthria ?> 0 = Normal 11: Extinction/inattention ?> 0 = No abnormality CT head: No acute intracranial process. no intracranial hemorrhage, no evidence of infarct. no evidence of acute fracture.This was reviewed and interpreted by myself the ER physician. EKG: Time 1836. Rate 64. Sinus rhythm with sinus arrhythmia, No ST-T changes, no ectopy, normal CT & QRS intervals, This was reviewed and interpreted by myself the ER physician at 1840. Consultation: I spoke with Dr. Shaw who is on-call for neurology. She agrees that with resolution of symptoms almost completely that TNKase is not necessary. She recommends 3-week course of Plavix and aspirin. Patient is already on a statin. Lab Review: Laboratory results were reviewed and interpreted by myself the emergency room physician. No leukocytosis. No anemia. No renal failure. CTA of the head and neck: No obvious stenosis or occlusions are identified. No mass. This was reviewed and interpreted by myself the emergency room physician. I also reviewed the radiology report. I reviewed the patient's medical record. Reexamination: Patient remained stable. No increased work of breathing. No altered mental status. No focal motor deficits. Symptoms have completely resolved Assessment and plan: TIA -First dose of Plavix here ? Discharged home - Discussed plan with patient. Answered any questions. - Evaluation and treatment of this problem were appropriate in the emergency setting. Lab Data 12/18/24 18:25 12/18/24 18:[address] 12/18/24 18:20 IMPRESSION: No acute intracranial abnormality. ASSESSMENT: ASPECTS (Emily Stroke Program Early CT Score) is 10. ADDENDUM: 12/18/24 5173 Findings were discussed with BETTINA GUZMAN at 12/18/2024 6:42 PM CDT. Head/Neck CTA 12/18/24 18:36 IMPRESSION: No large vessel stenosis or occlusion. IMPRESSION: No severe stenosis or occlusion. REFERENCES: NASCET CRITERIA. The degree of stenosis in the cervical segment of the internal carotid artery is based on NASCET criteria. Normal is no stenosis. Mild is less than 50% stenosis. Moderate is 50-69% stenosis. Severe is 70% to 99% stenosis. Total occlusion is no detectable patent lumen. Laboratory Results WBC 6.13 10^3/uL (3.29-11.43) 12/18/24 18:25 RBC 3.79 10^6/uL (3.85-5.65) L 12/18/24 18:25 Hgb 12.00 g/dL (11.27-16.99) 12/18/24 18:25 Hct 36.2 % (36-47) 12/18/24 18:25 MCV 95.5 fl (85-98) 12/18/24 18: MCH 31.7 pg (27-33) 12/18/24 18: MCHC 33.1 g/dL (30-55) 12/18/24 18:25 RDW 11.5 % (12.1-15.1) L 12/18/24 18:25 Plt Count 189 10^3/cmm (157-399) 12/18/24 18:25 MPV 10.0 fL (7.4-10.4) 12/18/24 18:25 Neut % (Auto) 47.4 % 12/18/24 18:25 Lymph % (Auto) 37.8 % 12/18/24 18:25 [place] % (Auto) 10.6 % 12/18/24 18:25 Eos % (Auto) 3.3 % 12/18/24 18:25 Baso % (Auto) 0.7 % 12/18/24 18:25 Neut # (Auto) 2.91 10^3/uL (1.8-7.7) 12/18/24 18:25 Lymph # (Auto) 2.3 10^3/uL (0.8-4.8) 12/18/24 18:25 [place] # (Auto) 0.7 10^3/uL (0.2-0.9) 12/18/24 18:25 Eos # (Auto) 0.2 10^3/uL (0.0-0.8) 12/18/24 18:25 Baso # (Auto) 0.0 10^3/uL (0.0-0.1) 12/18/24 18:25 Nucleated RBC % (auto) 0 % 12/18/24 18: Nucleated RBCs # 0.0 /100WBC 12/18/24 18: PT 13.60 SECONDS (12.1-14.9) 12/18/24 18: INR 0.97 (0.8-1.2) 12/18/24 18: APTT 25.1 SECONDS (23.9-36.7) 12/18/24 18:25 Sodium 138 mmol/L (136-145) 12/18/24 18:25 Potassium 4.1 mmol/L (3.5-5.1) 12/18/24 18: Chloride 102 mmol/L (98-107) 12/18/24 18: Carbon Dioxide 25 mmol/L (22-29) 12/18/24 18: Anion Gap 15.1 (5-19) 12/18/24 18:25 BUN 11 mg/dL (8-23) 12/18/24 18: Creatinine 0.8 mg/dL (0.5-0.9) 12/18/24 18:25 GFR Calculation Not Reportable 12/18/24 18:25 Glucose 83 mg/dL (65-115) 12/18/24 18: POC Glucose 105 mg/dL (70-110) 12/18/24 18:19 Calculated Osmolality 285 mOsm/kg (285-295) 12/18/24 18: Calcium 9.0 mg/dL (8.5-10.5) 12/18/24 18:25 Total Bilirubin 0.5 mg/dL (0.15-1.2) 12/18/24 18:25 AST 23 U/L (0-32) 12/18/24 18: ALT 20 U/L (0-33) 12/18/24 18:25 Alkaline Phosphatase 103 U/L (35-105) 12/18/24 18: Total Protein 6.4 g/dL (6.6-8.7) L 12/18/24 18: Albumin 4.1 g/dL (3.5-5.2) 12/18/24 18: Globulin 2.3 g/dL (1.3-4.6) 12/18/24 18: Urine Color Yellow (Yellow) 12/18/24 19: Urine Appearance Clear (CLEAR) 12/18/24 19: Urine pH 7.5 (5-7) 12/18/24 19: Ur Specific [place] 1.011 (1.005-1.030) 12/18/24 19: Urine Protein Negative (Negative) 12/18/24 19: Urine Glucose (UA) Negative (Normal) 12/18/24 19: Urine Ketones Negative (Negative) 12/18/24 19: Urine Blood Negative (Negative) 12/18/24 19: Urine Nitrate Negative (Negative) 12/18/24 19: Urine Bilirubin Negative (Negative) 12/18/24 19: Urine Urobilinogen 0.2 mg/dL (Negative) 12/18/24 19: Ur Leukocyte Esterase Trace (Negative) A 12/18/24 19:01 Urine RBC 0-2 /hpf (0-2) 12/18/24 19:01 Urine WBC 0-5 /hpf (0-5) 12/18/24 19: Ur Squamous Epith Cells 0-5 /hpf (0-5) 12/18/24 19: Amorphous Sediment Not Reportable 12/18/24 19: Urine Bacteria None seen /hpf (NONE) 12/18/24 19: Hyaline Casts 0.40 /lpf 12/18/24 19:01 Urine Opiates Screen Negative ng/mL (Negative) 12/18/24 19: Ur Barbiturates Screen Negative ng/mL (Negative) 12/18/24 19:01 Ur Phencyclidine Scrn Negative ng/mL (Negative) 12/18/24 19: Ur Amphetamines Screen Negative ng/mL (Negative) 12/18/24 19: U Benzodiazepines Scrn Negative ng/mL (Negative) 12/18/24 19:01 Urine Cocaine Screen Negative ng/mL (Negative) 12/18/24 19:01 U Marijuana (THC) Screen Negative ng/mL (Negative) 12/18/24 19:01 All radiology interpretation(s) finalized by discharge Discharge Plan Discharge Patient Disposition: Home Clinical Impression: Transient ischemic attack (TIA) Condition: Stable Prescriptions: New clopidogrel [Plavix] 75 mg tablet 75 mg PO DAILY Qty: 21 0RF No Action Dexilant 60 mg capsule,biphase delayed releas 60 mg PO DAILY levothyroxine 50 mcg capsule 50 mcg PO DAILY aspirin 81 mg tablet,chewable 81 mg PO DAILY atorvastatin 40 mg tablet 40 mg PO DAILY vitamin B complex [B Complex-Vitamin B12] Tablet 1 tab PO DAILY cholecalciferol (vitamin D3) 50 mcg (2,000 unit) capsule 50 mcg PO BID Discharge Orders: Discharge ED (Routine); Ordered 12/18/24 Ordered By: Bettina Guzman Referrals: Sahil Oliva, [Primary Care Provider, Internal Medicine] Discharge Diet: Usual diet Discharge Activity: Increase activity as tolerated Patient Instructions: Transient Ischemic Attack (ED), Opioid Safety, Pain Management Activity Restrictions/Additional Instructions: Continue your low-dose aspirin and take Plavix for the next 3 weeks. Please follow with your primary before the end of that 3 weeks preferably in the next few days. Thank you for choosing [facility] for your healthcare needs today. You have been screened and evaluated and felt safe for discharge. Health conditions do change or evolve sometimes and as such it is important that you follow up with your Primary Doctor to be re checked, 3-5 days is a general good time frame for follow up. You are always welcome to return to the ED for re assessment if your symptoms are worsening or you have new concerns Print Language: [place] Coding Level of Care Code ED Archives Technician for Akanksha Soto
[2024-12-18 18:33] LABS: Basophils % 0.7 %; Eosinophils # 0.2 10^3/uL (0.0-0.8); Eosinophils % 3.3 %; Hematocrit 36.2 % (36-47); Lymphocytes # 2.3 10^3/uL (0.8-4.8); Lymphocytes % 37.8 %; Mean Corpuscular HGB Conc 33.1 g/dL (30-55); Mean Corpuscular Hemoglobin 31.7 pg (27-33); Mean Corpuscular Volume 95.5 fl (85-98); Monocytes # 0.7 10^3/uL (0.2-0.9); Monocytes % 10.6 %; Neutrophils # 2.91 10^3/uL (1.8-7.7); Neutrophils % 47.4 %; Nucleated Red Blood Cells % 0 %; Platelet Count 189 10^3/cmm (157-399); Red Blood Count 3.79 10^6/uL (3.85-5.65); Red Cell Distribution Width 11.5 % (12.1-15.1); White Blood Count 6.13 10^3/uL (3.29-11.43)
--- NOTE | 2024-12-18 18:36 | ECG_ITS ---
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 Measurements Intervals [place] Rate: 64 P: 77 [place]: 196 QRS: 27 QRSD: 91 T: 75 QT: 376 QTc: 390 Interpretive Statements SINUS RHYTHM WITH SINUS ARRHYTHMIA Compared to ECG 07/16/2023 22:34:21 No significant changes Electronically Signed On 12-19-2024 16:28:55 CDT by Jacyln Shea M.D. [email or web address]
--- NOTE | 2024-12-18 18:36 | CTR_ITS ---
PROCEDURE INFORMATION: Exam: CTA Head With Contrast, Arteriography Exam date and time: 12/18/2024 6:43 PM Age: 79 years old Clinical indication: Paralysis, transient of limb; Additional info: Possible stroke TECHNIQUE: Imaging protocol: Computed tomographic angiography of the head with contrast. Exam focused on the arteries. 3D rendering (Not supervised by radiologist): MIP and/or 3D reconstructed images were created by the technologist. Radiation optimization: All CT scans at this facility use at least one of these dose optimization techniques: automated exposure control; mA and/or kV adjustment per patient size (includes targeted exams where dose is matched to clinical indication); or iterative reconstruction. Contrast material: OMNIPAQUE 350; Contrast volume: 100 ml; Contrast route: INTRAVENOUS (IV); COMPARISON: CT head thrombolytic [id number] 12/18/2024 6:26 PM RADIATION DOSE METRICS: Total DLP (mGy-cm): 359.34 FINDINGS: ANTERIOR CIRCULATION: Right internal carotid artery: Intracranial segment is patent with no significant stenosis. No aneurysm. Right middle cerebral artery: No occlusion or significant stenosis. No aneurysm. Right anterior cerebral artery: No occlusion or significant stenosis. No aneurysm. Left internal carotid artery: Intracranial segment is patent with no significant stenosis. No aneurysm. Left middle cerebral artery: No occlusion or significant stenosis. No aneurysm. Left anterior cerebral artery: No occlusion or significant stenosis. No aneurysm. POSTERIOR CIRCULATION: Right vertebral artery: No occlusion or significant stenosis. No aneurysm. Left vertebral artery: No occlusion or significant stenosis. No aneurysm. Basilar artery: No occlusion or significant stenosis. No aneurysm. Right posterior cerebral artery: No occlusion or significant stenosis. No aneurysm. Left posterior cerebral artery: No occlusion or significant stenosis. No aneurysm. Brain: No definite mass, mass effect, or midline shift. Cerebral ventricles: No ventriculomegaly. Bones/joints: Unremarkable. No acute fracture. Soft tissues: Unremarkable. PROCEDURE INFORMATION: Exam: CTA Neck With Contrast Exam date and time: 12/18/2024 6:43 PM Age: 79 years old Clinical indication: Paralysis, transient of limb; Additional info: Possible stroke TECHNIQUE: Imaging protocol: Computed tomographic angiography of the neck with contrast. Exam focused on the cervical segments of the vasculature. 3D rendering (Not supervised by radiologist): MIP and/or 3D reconstructed images were created by the technologist. Radiation optimization: All CT scans at this facility use at least one of these dose optimization techniques: automated exposure control; mA and/or kV adjustment per patient size (includes targeted exams where dose is matched to clinical indication); or iterative reconstruction. Contrast material: OMNIPAQUE 350; Contrast volume: 100 ml; Contrast route: INTRAVENOUS (IV); COMPARISON: CT head thrombolytic [id number] 12/18/2024 6:26 PM RADIATION DOSE METRICS: Total DLP (mGy-cm): 359.34 FINDINGS: Right common carotid artery: Mild stenosis at the carotid bulb. No dissection or occlusion. Right internal carotid artery: No stenosis of the extracranial segment. No dissection or occlusion. Right external carotid artery: No occlusion or stenosis of the origin. Left common carotid artery: Mild stenosis at the carotid bulb. No dissection or occlusion. Left internal carotid artery: Mild stenosis at the origin. No dissection or occlusion. Left external carotid artery: No occlusion or stenosis of the origin. Right vertebral artery: No stenosis. No dissection or occlusion. Left vertebral artery: No stenosis. No dissection or occlusion. Soft tissues: Normal. No significant soft tissue swelling. Bones/joints: No acute fracture. CT/CT angio headneck* [id number] IMPRESSION: No large vessel stenosis or occlusion. IMPRESSION: No severe stenosis or occlusion. REFERENCES: NASCET CRITERIA. The degree of stenosis in the cervical segment of the internal carotid artery is based on NASCET criteria. Normal is no stenosis. Mild is less than 50% stenosis. Moderate is 50-69% stenosis. Severe is 70% to 99% stenosis. Total occlusion is no detectable patent lumen.
[2024-12-18 18:44] LABS: INR 0.97 (0.8-1.2)
[2024-12-18 18:45] LABS: Partial Thromboplastin Time 25.1 SECONDS (23.9-36.7)
[2024-12-18] MEDS: iohexol 350 mg/mL 500 mL Btl (per mL) IV (18:48)
[2024-12-18 18:56] LABS: Alanine Aminotransferase 20 U/L (0-33); Albumin Level 4.1 g/dL (3.5-5.2); Alkaline Phosphatase 103 U/L (35-105); Aspartate Amino Transferase 23 U/L (0-32); Blood Urea Nitrogen 11 mg/dL (8-23); Carbon Dioxide 25 mmol/L (22-29); Chloride 102 mmol/L (98-107); Creatinine Clr Calc Pharmacy 49.0831; Globulin 2.3 g/dL (1.3-4.6); Glucose 83 mg/dL (65-115); Osmolality Calculated 285 mOsm/kg (285-295); Sodium 138 mmol/L (136-145); Total Bilirubin 0.5 mg/dL (0.15-1.2); Total Protein 6.4 g/dL (6.6-8.7)
[2024-12-18 18:57] LABS: Anion Gap 15.1 (5-19); Potassium 4.1 mmol/L (3.5-5.1)
[2024-12-18 19:19] LABS: Bilirubin Urine Negative (Negative); Blood Urine Negative (Negative); Glucose Urine UA Negative (Normal); Ketones Urine Negative (Negative); Leukocyte Esterase Urine Trace (Negative); Nitrate Urine Negative (Negative); Protein Urine Negative (Negative); Specific Gravity, Urine 1.011 (1.005-1.030); Urine Appearance Clear (CLEAR); Urine Color Yellow (Yellow); Urobilinogen Urine 0.2 mg/dL (Negative); pH Urine 7.5 (5-7)
[2024-12-18 19:27] LABS: Add Urine Microscopic? YES; Bacteria Urine None Seen /hpf; RBC Urine 0-2 /hpf (0-2); Squamous Epithelial Cell Urine 0-5 /hpf (0-5); WBC Urine 0-5 /hpf (0-5)
[2024-12-18 19:28] LABS: Amphetamines Screen Urine Negative (Negative); Barbiturates Screen Urine Negative (Negative); Benzodiazepines Screen Urine Negative (Negative); Cocaine Screen Urine Negative (Negative); Opiate Screen Urine Negative (Negative); PCP Screen Urine Negative (Negative); THC Screen Urine Negative (Negative)
[2024-12-18 19:52] VITALS: BP 157/90; PULSE 63; O2SAT 94
[2024-12-18] MEDS: clopidogrel 75 mg Tablet PO (20:32)
[2024-12-18 20:35] VITALS: BP 152/68; PULSE 72; O2SAT 96
== END 2024-12-18 20:36 | disposition home or self-care (01) ==
PROVIDERS: Emergency Provider Emergency Medicine; PCP Internal Medicine
DX: G45.9 Transient cerebral ischemic attack, unspecified (principal); R47.81 Slurred speech; E03.9 Hypothyroidism, unspecified; E78.5 Hyperlipidemia, unspecified; Z79.82 Long term (current) use of aspirin; Z79.899 Other long term (current) drug therapy; Z79.890 Hormone replacement therapy
CPT/HCPCS: 36415; 36416; 70450; 70496; 70498; 80053; 80306; 81001; 82962; 85025; 85610; 85730; 93005; 99285; J9999

== ENCOUNTER 2025-01-10 07:05 | Emergency (ER) | payer MEDICARE, OTHER, SELFPAY ==
[2025-01-10 07:19] VITALS: BP 133/75; PULSE 69; RESP 20; TEMP 36.3; O2SAT 98; BMI 24.1
--- NOTE | 2025-01-10 07:24 | ECG_ITS ---
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 Measurements Intervals [place] Rate: 63 P: 66 [place]: 194 QRS: -18 QRSD: 92 T: 44 QT: 376 QTc: 385 Interpretive Statements SINUS RHYTHM Compared to ECG 12/18/2024 18:36:44 Sinus arrhythmia no longer present Electronically Signed On 01-10-2025 14:32:50 CDT by Jaclyn Shea M.D. [email or web address]
--- NOTE | 2025-01-10 07:28 | W.ED.NEUROSD ---
HPI - Neuro Symptoms/Deficit General: Chief Complaint: Neuro Symptoms/Deficit Stated Complaint: pt stated possible TIA Time Seen by Provider: 01/10/25 07:23 History of Present Illness: 79-year-old female presents to the emergency room with complaints of left arm numbness and numbness in the middle of her face. Trying to get her to clarify ultimately the numbness was circumoral. All of her symptoms are resolved. She woke up at 6:00 she did not have any symptoms and around 7 she began to have the numbness and tingling in the arm and around her lips did not resolve completely before she arrived here she has no symptoms at this time her initial stroke score is negative he has no chest pain shortness of breath or abdominal pain. Her initial stroke score is 0. Patient was seen for similar episode in December 18, 2024 CTA head and neck and CT were both negative she was started on clopidogrel in addition to the aspirin and statin she was already on. Associated symptoms: Deny chest pain Related Data Home Medications ?Medication ?Instructions ?Recorded ?Confirmed aspirin 81 mg chewable tablet 81 mg PO DAILY 07/25/21 01/10/25 atorvastatin 40 mg tablet 40 mg PO DAILY 07/25/21 01/10/25 cholecalciferol (vitamin D3) 50 50 mcg PO BID 07/25/21 01/10/25 mcg (2,000 unit) capsule dexlansoprazole 60 mg 60 mg PO DAILY 07/25/21 01/10/25 capsule,biphase delayed release (Dexilant) levothyroxine 50 mcg capsule 50 mcg PO DAILY 07/25/21 01/10/25 vitamin B complex 1 tab PO DAILY 01/10/25 01/10/25 Previous Rx's ?Medication ?Instructions ?Recorded clopidogrel 75 mg tablet (Plavix) 75 mg PO DAILY #21 tabs 12/18/24 Allergies Allergy/AdvReac Type Severity Reaction Status Date / Time No Known Allergies Allergy Verified 08/08/21 14:51 Review of Systems Const: Denies: fever(s) or chills Card: Denies: chest pain Resp: Denies: dyspnea GI: Denies: abdominal pain : Denies: dysuria, urinary frequency or urinary urgency Musc: Denies: neck pain or back pain Skin/Breast: Denies: rash PFSH ED PFSH: Medical History History of TIA (transient ischemic attack) Hypothyroidism Microscopic colitis Acid reflux High cholesterol Surgical History History of colonoscopy No pertinent past surgical history Family History Sister Cancer Hodgkin's disease Diabetes Father Cancer Prostate Brother Cancer prostate Hypertension Denies family history of Clotting disorder Hyperlipidemia Chronic kidney disease (CKD) Bleeding disorder Stroke Social History Smoking and tobacco/nicotine status: never used tobacco/nicotine NIH stroke score NIHSS: Level Of Consciousness - 1a: 0 Level Of Consciousness Questions - 1b: Both Correct Level Of Consciousness Commands - 1c: Both Correct Best Gaze - 2: Normal Visual Lal - 3: No Visual Loss Facial Palsy - 4: Normal Motor Arm Right - 5: No Drift Motor Arm Left - 5: No Drift Motor Leg Right - 6: No Drift Motor Leg Left - 6: No Drift Limb Ataxia - 7: Absent Sensory - 8: Normal Best Language - 9: No Aphasia Dysarthia - 10: Normal Extinction And Inattention - 11: 0 Score: Total Score: 0 Physical Exam Const: COMMON NORMALS: no acute distress GENERAL APPEARANCE: cooperative and comfortable ORIENTATION/CONSCIOUSNESS: Yes awake, Yes oriented to person, Yes oriented to place and Yes oriented to time HENMT: COMMON NORMALS: normocephalic, atraumatic and hearing grossly normal bilaterally HEAD & SCALP: normocephalic and atraumatic Resp: COMMON NORMALS: normal respiratory effort, No retractions, No use of accessory muscles and clear to auscultation bilaterally AUSCULTATION: clear to auscultation bilaterally Cardio: COMMON NORMALS: regular rate, regular rhythm and No murmurs present (Cardio) RATE: regular rate RHYTHM: regular rhythm GI: COMMON NORMALS: Soft to palpation and No hepatosplenomegaly present AUSCULTATION: Yes normoactive bowel sounds PALPATION: Yes Soft to palpation, No Tenderness to palpation present (GI), No Guarding due to palpation present (GI) and Yes No hepatosplenomegaly present Extremity: COMMON NORMALS: normal to inspection, capillary refill normal, no clubbing, cyanosis or edema, no calf tenderness and no pedal edema Neuro: SENSORIUM/ORIENTATION: Yes oriented to person, Yes oriented to place and Yes oriented to time OTHER: No ataxia [id number] and [id number] utterly without abnormality Skin: COMMON NORMALS: no rashes or lesions noted GENERAL SKIN EXAM: no rashes or lesions noted Course Vital Signs: Vital signs: Vital Signs Temperature 97.4 F L 01/10/25 07:19 Pulse Rate 65 01/10/25 10:26 Respiratory Rate 15 01/10/25 08:05 Blood Pressure 132/69 01/10/25 10:26 Pulse Oximetry 98 01/10/25 10:26 MDM - Neuro Symptoms/Deficit Medical Decision Making Her symptoms resolved by the time she got here and do not believe she necessarily had a TIA her numbness and tingling was circumoral she did have left arm discomfort last time she had a potential TIA it was on the right. Previous CTA did not show any significant stenosis. Will discharge patient home continue Plavix aspirin and atorvastatin. She has follow-up with neurology and an MRI of the head set up. Medical Records I reviewed the patient's medical records. Lab Data I reviewed the patient's lab results. 01/10/25 07:30 01/10/25 07:[address] 01/10/25 07:36 IMPRESSION: 1. No evidence of acute intracranial process. 2. Mild to moderate small vessel disease. Small chronic infarct. ASSESSMENT: ASPECTS ([place] Stroke Program Early CT Score) is 10. ADDENDUM: 01/10/25 0756 THIS REPORT CONTAINS FINDINGS THAT MAY BE CRITICAL TO PATIENT CARE. The findings were verbally communicated via telephone conference with CHANG GLEZ at 7:54 AM JANELLE on 01/10/2025. The findings were acknowledged and understood. Laboratory Results WBC 4.90 10^3/uL (3.29-11.43) 01/10/25 07:30 RBC 4.08 10^6/uL (3.85-5.65) 01/10/25 07:30 Hgb 12.80 g/dL (11.27-16.99) 01/10/25 07:30 Hct 39.1 % (36-47) 01/10/25 07:30 MCV 95.8 fl (85-98) 01/10/25 07:30 MCH 31.4 pg (27-33) 01/10/25 07:30 MCHC 32.7 g/dL (30-55) 01/10/25 07:30 RDW 11.3 % (12.1-15.1) L 01/10/25 07:30 Plt Count 191 10^3/cmm (157-399) 01/10/25 07:30 MPV 9.7 fL (7.4-10.4) 01/10/25 07:30 Neut % (Auto) 49.6 % 01/10/25 07:30 Lymph % (Auto) 32.2 % 01/10/25 07:30 [place] % (Auto) 13.9 % 01/10/25 07:30 Eos % (Auto) 3.5 % 01/10/25 07:30 Baso % (Auto) 0.6 % 01/10/25 07:30 Neut # (Auto) 2.43 10^3/uL (1.8-7.7) 01/10/25 07:30 Lymph # (Auto) 1.6 10^3/uL (0.8-4.8) 01/10/25 07:30 [place] # (Auto) 0.7 10^3/uL (0.2-0.9) 01/10/25 07:30 Eos # (Auto) 0.2 10^3/uL (0.0-0.8) 01/10/25 07:30 Baso # (Auto) 0.0 10^3/uL (0.0-0.1) 01/10/25 07:30 Nucleated RBC % (auto) 0 % 01/10/25 07:30 Nucleated RBCs # 0.0 /100WBC 01/10/25 07:30 PT 13.70 SECONDS (12.1-14.9) 01/10/25 07:30 INR 0.98 (0.8-1.2) 01/10/25 07:30 APTT 25.3 SECONDS (23.9-36.7) 01/10/25 07:30 Sodium 137 mmol/L (136-145) 01/10/25 07:30 Potassium 3.5 mmol/L (3.5-5.1) 01/10/25 07:30 Chloride 101 mmol/L (98-107) 01/10/25 07:30 Carbon Dioxide 24 mmol/L (22-29) 01/10/25 07:30 Anion Gap 15.5 (5-19) 01/10/25 07:30 BUN 8 mg/dL (8-23) 01/10/25 07:30 Creatinine 0.8 mg/dL (0.5-0.9) 01/10/25 07:30 GFR Calculation Not Reportable 01/10/25 07:30 Glucose 92 mg/dL (65-115) 01/10/25 07:30 POC Glucose 98 mg/dL (70-110) 01/10/25 07:38 Calculated Osmolality 282 mOsm/kg (285-295) L 01/10/25 07:30 Calcium 9.0 mg/dL (8.5-10.5) 01/10/25 07:30 Total Bilirubin 0.4 mg/dL (0.15-1.2) 01/10/25 07:30 AST 16 U/L (0-32) 01/10/25 07:30 ALT 15 U/L (0-33) 01/10/25 07:30 Alkaline Phosphatase 103 U/L (35-105) 01/10/25 07:30 Total Protein 7.0 g/dL (6.6-8.7) 01/10/25 07:30 Albumin 3.9 g/dL (3.5-5.2) 01/10/25 07:30 Globulin 3.1 g/dL (1.3-4.6) 01/10/25 07:30 Urine Color Yellow (Yellow) 01/10/25 07:17 Urine Appearance Clear (CLEAR) 01/10/25 07:17 Urine pH 8.0 (5-7) A 01/10/25 07:17 Ur Specific [place] 1.006 (1.005-1.030) 01/10/25 07:17 Urine Protein Negative (Negative) 01/10/25 07:17 Urine Glucose (UA) Negative (Normal) 01/10/25 07:17 Urine Ketones Negative (Negative) 01/10/25 07:17 Urine Blood Negative (Negative) 01/10/25 07:17 Urine Nitrate Negative (Negative) 01/10/25 07:17 Urine Bilirubin Negative (Negative) 01/10/25 07:17 Urine Urobilinogen 0.2 mg/dL (Negative) 01/10/25 07:17 Ur Leukocyte Esterase Negative (Negative) 01/10/25 07:17 Urine RBC 0-2 /hpf (0-2) 01/10/25 07:17 Urine WBC 0-5 /hpf (0-5) 01/10/25 07:17 Ur Squamous Epith Cells 0-5 /hpf (0-5) 01/10/25 07:17 Amorphous Sediment Not Reportable 01/10/25 07:17 Urine Bacteria None seen /hpf (NONE) 01/10/25 07:17 Hyaline Casts 0.40 /lpf 01/10/25 07:17 Urine Opiates Screen Negative ng/mL (Negative) 01/10/25 07:17 Ur Barbiturates Screen Negative ng/mL (Negative) 01/10/25 07:17 Ur Phencyclidine Scrn Negative ng/mL (Negative) 01/10/25 07:17 Ur Amphetamines Screen Negative ng/mL (Negative) 01/10/25 07:17 U Benzodiazepines Scrn Negative ng/mL (Negative) 01/10/25 07:17 Urine Cocaine Screen Negative ng/mL (Negative) 01/10/25 07:17 U Marijuana (THC) Screen Negative ng/mL (Negative) 01/10/25 07:17 All radiology interpretation(s) finalized by discharge Discharge Plan Discharge Patient Disposition: Home Clinical Impression: Transient cerebral ischemia Condition: Stable Prescriptions: No Action Dexilant 60 mg capsule,biphase delayed releas 60 mg PO DAILY levothyroxine 50 mcg capsule 50 mcg PO DAILY aspirin 81 mg tablet,chewable 81 mg PO DAILY atorvastatin 40 mg tablet 40 mg PO DAILY cholecalciferol (vitamin D3) 50 mcg (2,000 unit) capsule 50 mcg PO BID clopidogrel [Plavix] 75 mg tablet 75 mg PO DAILY Qty: 21 0RF vitamin B complex Tablet 1 tab PO DAILY Discharge Orders: Discharge ED (Routine); Ordered 01/10/25 Ordered By: Chang Glez Referrals: Sahil Oliva DO [Primary Care Provider, Internal Medicine] Discharge Diet: Usual diet Discharge Activity: Resume usual activity Patient Instructions: Opioid Safety, Pain Management Activity Restrictions/Additional Instructions: Thank you for choosing [facility] for your healthcare needs today. It is very important that you follow up as instructed or that you return to the Emergency Department should you have concerns or if your condition changes or worsens in any way. You are seen for possible stroke/transient ischemic attack. CT of your head did not show any signs of abnormality. Your exam did not show signs of acute stroke at this time. Recommend you continue your Plavix aspirin and atorvastatin follow-up with your MRI of your head and neurology as previously scheduled Print Language: Yoruba Coding Level of Care Code ED Provider Relations Specialist for Akanksha Soto
[2025-01-10 07:34] LABS: Basophils % 0.6 %; Eosinophils # 0.2 10^3/uL (0.0-0.8); Eosinophils % 3.5 %; Hematocrit 39.1 % (36-47); Lymphocytes # 1.6 10^3/uL (0.8-4.8); Lymphocytes % 32.2 %; Mean Corpuscular HGB Conc 32.7 g/dL (30-55); Mean Corpuscular Hemoglobin 31.4 pg (27-33); Mean Corpuscular Volume 95.8 fl (85-98); Mean Platelet Volume 9.7 fL (7.4-10.4); Monocytes # 0.7 10^3/uL (0.2-0.9); Monocytes % 13.9 %; Neutrophils # 2.43 10^3/uL (1.8-7.7); Neutrophils % 49.6 %; Nucleated Red Blood Cells % 0 %; Platelet Count 191 10^3/cmm (157-399); Red Blood Count 4.08 10^6/uL (3.85-5.65); Red Cell Distribution Width 11.3 % (12.1-15.1)
--- NOTE | 2025-01-10 07:36 | CTR_ITS ---
PROCEDURE INFORMATION: Exam: CT Head Without Contrast Exam date and time: 01/10/2025 7:40 AM Age: 79 years old Clinical indication: Stroke-like symptoms; Right lower extremity numbness/paresthesia; Additional info: Symptoms of acute stroke TECHNIQUE: Imaging protocol: Computed tomography of the head without contrast. Radiation optimization: All CT scans at this facility use at least one of these dose optimization techniques: automated exposure control; mA and/or kV adjustment per patient size (includes targeted exams where dose is matched to clinical indication); or iterative reconstruction. Other technique: STROKE PROTOCOL was implemented. COMPARISON: CT angio headneck* [id number] 12/18/2024 6:43 PM RADIATION DOSE METRICS: Total DLP (mGy-cm): 959.18 FINDINGS: Brain: There is mild to moderate small vessel disease. There is a small chronic left basal ganglia infarct. There is no evidence of acute parenchymal hemorrhage, extra-axial collection, or acute infarction. There is no mass effect, midline shift, or downward herniation. Cerebral ventricles: No ventriculomegaly. Paranasal sinuses: Visualized sinuses are unremarkable. No fluid levels. Mastoid air cells: Visualized mastoid air cells are well aerated. Bones: Unremarkable. No acute fracture. Soft tissues: Unremarkable. CT/CT head thrombolytic [id number] IMPRESSION: 1. No evidence of acute intracranial process. 2. Mild to moderate small vessel disease. Small chronic infarct. ASSESSMENT: ASPECTS ([place] Stroke Program Early CT Score) is 10.
[2025-01-10 07:41] LABS: Glucose Point of Care 98 mg/dL (70-110)
[2025-01-10 07:57] LABS: Alanine Aminotransferase 15 U/L (0-33); Albumin Level 3.9 g/dL (3.5-5.2); Alkaline Phosphatase 103 U/L (35-105); Anion Gap 15.5 (5-19); Aspartate Amino Transferase 16 U/L (0-32); Blood Urea Nitrogen 8 mg/dL (8-23); Carbon Dioxide 24 mmol/L (22-29); Chloride 101 mmol/L (98-107); Creatinine Clr Calc Pharmacy 47.4886; Globulin 3.1 g/dL (1.3-4.6); Glucose 92 mg/dL (65-115); Osmolality Calculated 282 mOsm/kg (285-295); Potassium 3.5 mmol/L (3.5-5.1); Sodium 137 mmol/L (136-145); Total Bilirubin 0.4 mg/dL (0.15-1.2)
[2025-01-10 08:05] VITALS: BP 160/63; PULSE 64; RESP 15; O2SAT 95
[2025-01-10 08:30] LABS: INR 0.98 (0.8-1.2)
[2025-01-10 08:31] LABS: Partial Thromboplastin Time 25.3 SECONDS (23.9-36.7)
[2025-01-10 08:39] LABS: Amphetamines Screen Urine Negative (Negative); Barbiturates Screen Urine Negative (Negative); Benzodiazepines Screen Urine Negative (Negative); Cocaine Screen Urine Negative (Negative); Opiate Screen Urine Negative (Negative); PCP Screen Urine Negative (Negative); THC Screen Urine Negative (Negative)
[2025-01-10 08:50] LABS: Bilirubin Urine Negative (Negative); Blood Urine Negative (Negative); Glucose Urine UA Negative (Normal); Ketones Urine Negative (Negative); Leukocyte Esterase Urine Negative (Negative); Nitrate Urine Negative (Negative); Protein Urine Negative (Negative); Specific Gravity, Urine 1.006 (1.005-1.030); Urine Appearance Clear (CLEAR); Urine Color Yellow (Yellow); Urobilinogen Urine 0.2 mg/dL (Negative)
[2025-01-10 08:54] LABS: Add Urine Microscopic? YES; Bacteria Urine None Seen /hpf; RBC Urine 0-2 /hpf (0-2); Squamous Epithelial Cell Urine 0-5 /hpf (0-5); WBC Urine 0-5 /hpf (0-5)
[2025-01-10 10:26] VITALS: BP 132/69; PULSE 65; O2SAT 98
== END 2025-01-10 10:27 | disposition home or self-care (01) ==
PROVIDERS: Emergency Provider Family Medicine; PCP Internal Medicine
DX: G45.9 Transient cerebral ischemic attack, unspecified (principal); Z79.82 Long term (current) use of aspirin; Z79.02 Long term (current) use of antithrombotics/antiplatelets; Z86.73 Personal history of transient ischemic attack (TIA), and cerebral infarction without residual deficits
CPT/HCPCS: 36416; 70450; 80053; 80306; 81001; 82962; 85025; 85610; 85730; 93005; 99284

== ENCOUNTER 2025-01-20 09:07 | Outpatient (CLI) | payer MEDICARE, OTHER, SELFPAY ==
--- NOTE | 2025-01-20 09:10 | MR_ITS ---
WS: [id number] MRI HEAD WITHOUT CONTRAST TECHNIQUE: Sagittal T1, T2 axial, T2 axial FLAIR, axial and coronal T1 images, axial susceptibility weighted imaging, axial diffusion weighted images, and coronal T2 images were obtained. CLINICAL INFORMATION: TRANSIENT CEREBRAL ISCHEMIA COMPARISON: 2023 FINDINGS: Some images graded due to motion. Innumerable supratentorial foci of hemosiderin and diffuse hemosiderin in the cerebellar folia similar compared to 2024. Differential considerations are unchanged. No evidence of restricted diffusion to suggest acute ischemia. Moderate small vessel changes. Small vessel changes in the [place]. Mild parenchymal volume loss. Normal vascular flow voids at the skull base. No extra-axial fluid collections. Paranasal sinuses and mastoid air cells are well aerated. Normal optic chiasm and pituitary infundibulum. Mild symmetric atrophy temporal lobes and hippocampal formations. MR/MR head wo con* [id number] IMPRESSION: 1. No evidence of restricted diffusion to suggest acute ischemia. 2. Innumerable supratentorial foci of hemosiderin and diffuse hemosiderin in t he cerebellar folia similar in appearance since 2023. Differential consideratio ns are unchanged including amyloid angiopathy and superficial siderosis. Recomm end neurology consultation. 3. Moderate small vessel changes with mild parenchymal volume loss. Small vess el changes in the [place].
== END 2025-01-20 09:08 | disposition home or self-care (01) ==
LOC: RAD 09:08
PROVIDERS: PCP Nurse Practitioner Family; Visit Provider Nurse Practitioner Family
DX: G45.9 Transient cerebral ischemic attack, unspecified (principal)
CPT/HCPCS: 70551

== ENCOUNTER → 2025-01-27 11:11 | Outpatient (BNVA) | payer MEDICARE, OTHER, SELFPAY | PROVIDERS: PCP Nurse Practitioner Family; Visit Provider Nurse Practitioner Family | DX: L81.4 Other melanin hyperpigmentation (principal); L82.1 Other seborrheic keratosis; D18.01 Hemangioma of skin and subcutaneous tissue; L57.8 Other skin changes due to chronic exposure to nonionizing radiation; X32.XXXA Exposure to sunlight, initial encounter | CPT/HCPCS: 99213 ==